=== PATIENT | male | born 1995 | race Two or more races ===

== ENCOUNTER 2018-07-11 13:46 | Emergency (ER) | payer SELFPAY ==
[~2018-07-11] VITALS: Ht 175.3 cm; Wt 69.9 kg
[2018-07-11 13:46] VITALS: BP 140/74
== END 2018-07-11 15:17 | disposition home or self-care (01) ==
LOC: ER 13:48
DX: S61.512D Laceration without foreign body of left wrist, subsequent encounter (principal); F17.200 Nicotine dependence, unspecified, uncomplicated; F12.10 Cannabis abuse, uncomplicated; F10.10 Alcohol abuse, uncomplicated; Y90.9 Presence of alcohol in blood, level not specified; Z60.2 Problems related to living alone; W25.XXXD Contact with sharp glass, subsequent encounter
CPT/HCPCS: 99283; 99406; A4606; Z7610

== ENCOUNTER 2018-10-10 10:57 | Emergency (ER) | payer SELFPAY ==
[~2018-10-10] VITALS: Ht 175.3 cm; Wt 63.5 kg
[2018-10-10 10:57] VITALS: BP 138/89
--- NOTE | 2018-10-10 10:57 | NUR ---
PT BIBMOM; C/O H/A, BACK PAIN; PT ALERT AND AWAKE, AAOX4, RESPRIATIONS EVEN AND UNLABORED, NO SOB, NAD NOTED, VSS, PENDING ER PROVIDER EVAL
[2018-10-10] MEDS ORDERED: diphenhydrAMINE HCL 50 MG/ML VIAL ONE (12:27)
[2018-10-10] MEDS ORDERED: METOCLOPRAMIDE HCL 10 MG/2 ML VIAL ONE (12:28)
[2018-10-10] MEDS ORDERED: KETOROLAC TROMETHAMINE 15 MG/ML VIAL ONE (12:28)
[2018-10-10] MEDS: KETOROLAC TROMETHAMINE INJ 30 MG/ML VIAL IV ONE (12:40)
[2018-10-10] MEDS: METOCLOPRAMIDE HCL 10 MG/2 ML VIAL IV ONE (12:40)
[2018-10-10] MEDS: diphenhydrAMINE HCL 50 MG/ML VIAL IV ONE (12:40)
[2018-10-10] MEDS: IV NS 0.9% 1,000 ML BAG IV ONE (12:41)
== END 2018-10-10 13:43 | disposition home or self-care (01) ==
LOC: ER 11:03
DX: S09.8XXA Other specified injuries of head, initial encounter (principal); M54.5 Low back pain; Z60.2 Problems related to living alone; Y04.0XXA Assault by unarmed brawl or fight, initial encounter; Y93.89 Activity, other specified; Y92.89 Other specified places as the place of occurrence of the external cause; Y99.8 Other external cause status
CPT/HCPCS: J1200; J1885; J2765; J7030

== ENCOUNTER 2019-03-07 16:12 | Inpatient (IN) | payer OTHER ==
[~2019-03-07] VITALS: Ht 180.3 cm; Wt 66.2 kg
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
--- NOTE | 2019-03-07 16:50 | NUR ---
CALLED [employer] TO DISPATCH POLICE TO SPEAK TO THE PT AND FILE A REPORT. SPOKE TO [employer]FORMATION SYSTEM[employer] SPECIALIST [phone] TO DISPATCH THE OFFICERS
--- NOTE | 2019-03-07 17:22 | NUR ---
CALLED DR FALL ANSWERING SERVICE, HE IS CURRENTLY IN SURGERY AND WILL CALL US BACK WHEN HE IS AVAILABLE.
--- NOTE | 2019-03-07 18:32 | NUR ---
[employer] UNIT [id number] AT BEDSIDE TO TAKE REPORT.
--- NOTE | 2019-03-07 18:55 | NUR ---
Patient is resting comfortably in bed with eyes closed. Easily aroused. VSS
[2019-03-07] MEDS ORDERED: IV NS 0.9% 1,000 ML BAG IV ONE (19:30)
--- NOTE | 2019-03-07 19:35 | NUR ---
IV ACCESS OBTAINED AND IVF INFUSING. BLOOD TAKEN TO LAB
[2019-03-07 19:40] LABS: BASOPHILS # (AUTO) 0.1 /CMM (0.0-0.2); BASOPHILS % (AUTO) 0.5 % (0.0-2.0); EOSINOPHILS % (AUTO) 0.3 % (0.0-6.0); HEMATOCRIT 44 % (39-51); HEMOGLOBIN 14.2 g/dL (13.5-17.5); LYMPHOCYTES # (AUTO) 1.4 /CMM (0.8-4.8); LYMPHOCYTES % (AUTO) 11.6 % (20.0-44.0); MEAN CORPUSCULAR HGB CONC 33 g/dl (31.0-36.0); MEAN CORPUSCULAR VOLUME 71 fL (80-96); MONOCYTES # (AUTO) 1.3 /CMM (0.1-1.30); MONOCYTES % (AUTO) 10.1 % (2.0-12.0); NEUTROPHILS # (AUTO) 9.7 /CMM (1.8-8.9); NEUTROPHILS % (AUTO) 77.5 % (43.0-81.0); PLATELET COUNT (AUTO) 267 /CMM (150-450); RED BLOOD CELL COUNT(AUTO) 6.12 MIL/uL (4.5-6.0); WHITE BLOOD COUNT (AUTO) 12.5 K/uL (4.3-11.0)
[2019-03-07 19:49] LABS: CALCIUM, SERUM 9.6 mg/dL (8.5-10.1); POTASSIUM 3.4 mmol/L (3.5-5.1)
[2019-03-07] MEDS ORDERED: Z GUARD REMEDY 2 OZ OINT TP PRN (20:00)
[2019-03-07] MEDS ORDERED: ACETAMINOPHEN 325 MG TABLET PO PRN (20:00)
[2019-03-07] MEDS ORDERED: HYDROCODONE/APAP 5/325MG 1 EACH TABLET PO PRN (20:00)
[2019-03-07] MEDS ORDERED: ONDANSETRON HCL/PF 4 MG/2 ML VIAL IVP PRN (20:00)
[2019-03-07] MEDS ORDERED: MAGNESIUM HYDROXIDE 30 ML UDC PO PRN (20:00)
[2019-03-07] MEDS ORDERED: MORPHINE SULFATE INJ 2 MG/ML DISP.SYRIN IV PRN (20:00)
[2019-03-07] MEDS ORDERED: MAG HYDROX/AL HYDROX/SIMETH 30 ML UDC PO PRN (20:00)
[2019-03-07] MEDS ORDERED: ZOLPIDEM TARTRATE 5 MG TABLET PO PRN (20:00)
[2019-03-07 20:09] LABS: LYMPHOCYTES % (MANUAL) 8 % (16-48); MONOCYTES % (MANUAL) 12 % (0-11.0); NEUTROPHILS % (MANUAL) 80 (42-76)
--- NOTE | 2019-03-07 20:20 | NUR ---
REPORT GIVEN TO HUYEN MCMANUS FOR 316-1 MS FOR JASIEL
--- NOTE | 2019-03-07 20:34 | NUR ---
PT TAKEN TO UNIT VIA WC
[2019-03-07 20:40] VITALS: BP 145/86
[2019-03-07 20:45] VITALS: BP 145/86
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
[2019-03-07] MEDS: IV D5/0.45 NACL 1,000 ML IV PRN (21:52)
[2019-03-08] MEDS ORDERED: CEFTRIAXONE 1 G in IV D5W 50 ML IV SCH (00:30)
[2019-03-08] MEDS ORDERED: CEFTRIAXONE 1 G VIAL ONE (01:53)
--- NOTE | 2019-03-08 06:41 | NUR ---
316-1 MS/RN NOTES PATIENT ABLE TO SLEEP DURING THE NIGHT, RESPIRATIONS EVEN AND UNLABORED, SKIN WARM TO TOUCH, MONITORED FOR ANY CHANGES, IV ANTIBIOTIC ADMINISTERED, IV SITE PATENT ON TIGHT AC, IV FLUIDS ADMONISTERED. BED LOCKED, CALL LIGHTS WITHIN REACH. WILL MONITOR.
--- NOTE | 2019-03-08 07:40 | NUR ---
M/S RN NOTES PATIENT RESTING, LYING IN BED, NO RESPIRATORY DISTRESS. DENIES ANY PAIN AT THIS TIME. IVF OF D5 1/2NS INFUSING AT 125ML/HR ON THE RAC #20G, INTACT, NO REDNESS, NO INFILTRATION. PATIENT'S NEEDS ATTENDED. BED ON LOWEST AND LOCKED POSITION, CALL LIGHT WITHIN REACH. WILL CONTINUE TO MONITOR.
[2019-03-08 07:42] LABS: BASOPHILS % (AUTO) 0.4 % (0.0-2.0); EOSINOPHILS % (AUTO) 0.4 % (0.0-6.0); HEMATOCRIT 42 % (39-51); HEMOGLOBIN 13.6 g/dL (13.5-17.5); LYMPHOCYTES # (AUTO) 1.4 /CMM (0.8-4.8); MEAN CORPUSCULAR HGB CONC 32 g/dl (31.0-36.0); MEAN CORPUSCULAR VOLUME 71 fL (80-96); MONOCYTES % (AUTO) 10.2 % (2.0-12.0); NEUTROPHILS # (AUTO) 7.1 /CMM (1.8-8.9); PLATELET COUNT (AUTO) 232 /CMM (150-450); RED BLOOD CELL COUNT(AUTO) 5.86 MIL/uL (4.5-6.0); WHITE BLOOD COUNT (AUTO) 9.7 K/uL (4.3-11.0)
[2019-03-08 08:00] VITALS: BP 128/77
[2019-03-08 08:05] LABS: MAGNESIUM 2.1 mg/dL (1.8-2.4); PHOSPHORUS 3.5 mg/dL (2.5-4.9); POTASSIUM 3.7 mmol/L (3.5-5.1)
[2019-03-08] MEDS: IV D5/0.45 NACL 1,000 ML IV PRN (08:29)
[2019-03-08] MEDS ORDERED: PANTOPRAZOLE 40 MG VIAL IV SCH (09:00)
[2019-03-08 09:06] LABS: LYMPHOCYTES % (MANUAL) 18 % (16-48); MONOCYTES % (MANUAL) 6 % (0-11.0); NEUTROPHILS % (MANUAL) 76 (42-76)
--- NOTE | 2019-03-08 16:30 | NUR ---
M/S PLANNING INTERN NOTES PATIENT DISCHARGED TODAY. PATIENT GIVEN DISCHARGE INSTRUCTIONS AND NEW PRESCRIPTION PER DR. FALL, PATIENT VERBALIZED UNDERSTANDING. PATIENT IN STABLE CONDITION, VS STABLE. NO RESPIRATORY DISTRESS, NO C/O PAIN AT THIS TIME. SKIN WARM TO TOUCH, NO SKIN BREAKDOWN. IV REMOVED AND APPLIED PRESSURE DRESSING. BELONGINGS ACCOUNTED FOR AND SIGNED. PATIENT ESCORTED TO LOBBY AND LEFT WITH MOTHER IRINA IN PRIVATE CAR.
== END 2019-03-08 17:00 | disposition home or self-care (01) | DRG 159 ==
LOC: ER 16:16 → MED 20:18
PROVIDERS: ADMIT Student in an Organized Health Care Education/Training Program; ATTEND Nurse Practitioner Acute Care
DX: S02.601A Fracture of unspecified part of body of right mandible, initial encounter for closed fracture (principal); Y04.0XXA Assault by unarmed brawl or fight, initial encounter; Y92.89 Other specified places as the place of occurrence of the external cause; S02.602A Fracture of unspecified part of body of left mandible, initial encounter for closed fracture; Y04.2XXA Assault by strike against or bumped into by another person, initial encounter; Y92.521 Bus station as the place of occurrence of the external cause; F10.10 Alcohol abuse, uncomplicated
CPT/HCPCS: 36415; 70450-TC; 70486-TC; 80048-TC; 80061-TC; 83735-TC; 84100-TC; 85025-TC; 85730-TC; 87081-TC; G0378; J0696; J3490; J7030; J7060